=== PATIENT | male | born 1960 | race Caucasian/White ===

== ENCOUNTER 2021-03-28 12:10 | Emergency (ER) | payer OTHER, BC ==
[2021-03-28 13:09] VITALS: BP 131/90; PULSE 103; TEMP 98.3; BMI 33.9
[2021-03-28] MEDS ORDERED: KETOROLAC TROMETHAMINE 30 MG/1 ML VIAL IM ONE (13:49)
[2021-03-28] MEDS ORDERED: KETOROLAC TROMETHAMINE 30 MG/1 ML VIAL ONE (13:59)
== END 2021-03-28 14:08 | disposition home or self-care (01) ==
LOC: JERFT 12:10
PROC: 3E023GC Introduction of Other Therapeutic Substance into Muscle, Percutaneous Approach (ICD-10-PCS; principal; 2021-03-28)
DX: M25.512 Pain in left shoulder (principal)
CPT/HCPCS: 73030-TC-LT-FY; 99284-25